=== PATIENT | male | born 1960 | race Caucasian/White ===

== ENCOUNTER → 2025-06-27 | Outpatient (CLI) | payer BC, SELFPAY ==
[2025-06-28 14:08] LABS: PSA, Free 0.84 ng/mL; PSA, Free % 20.0 % (.); PSA, Total Ultrasensitive 4.200 ng/mL (0.000-4.000)
== END | disposition home or self-care (01) ==
LOC: LAB 09:18
PROVIDERS: PCP Student in an Organized Health Care Education/Training Program; Referring Provider Urology; Visit Provider Urology
DX: R97.20 Elevated prostate specific antigen [PSA] (principal)
CPT/HCPCS: 36415; 84153; 84154

== ENCOUNTER → 2025-07-10 | Outpatient (CLI) | payer BC, SELFPAY ==
--- NOTE | 2025-07-10 07:52 | MRI_ITS ---
EXAM: PELVIS W/WO CONTRAST 07/10/2025 CLINICAL HISTORY: ELEVATED PROSTATE SPECIFIC ANTIGEN. PSA 4.20 TECHNIQUE: Procedure Code: [id number] Modality: MR Procedure: PELVIS W/WO CONTRAST Multi planer multisequence multi parametric MRI of the prostate is performed prior to and after dynamic intravenous contrast administration. CONTRAST: Clariscan VOLUME: 20 mL COMPARISON: None FINDINGS: Prostate size: 2.9 x 3.8 x 4.6 cm, estimated volume 26.54 mL. Per the above provided PSA, PSA density is 0.158 ng/mL. Transition zone: PI-RADS 2 findings. Benign prostatic hyperplasia *Lesion 1: Well-circumscribed T2 hypointense nodule with restricted diffusion in the anterior transitional zone/anterior fibromuscular stroma. This nodule appears well encapsulated. *T2 score: 2; mostly encapsulated nodule or a homogeneous circumscribed nodule without encapsulation, or a homogeneous mildly hypointense area between nodules. *DWI score: 3; focal (discrete and different from background), mild/moderate hypointensity on ADC and/or mild/moderate hyperintensity on high b-value DWI; may be markedly hypointense on ADC or markedly hyperintense on high b-value DWI, but not both. *DCE: Negative. *Overall PI-RADS: PI-RADS 3. *Extracapsular extension:No gross extracapsular extension. Peripheral Zone: Unremarkable *T2 score: Choose 2. *DWI score: Choose 1. *DCE: Negative. *Overall PI-RADS: PI-RADS 2. *Extracapsular extension:No gross extracapsular extension. Neurovascular bundles: Unremarkable. Seminal vesicles: Unremarkable. Bladder: Underdistended and suboptimally evaluated, grossly unremarkable. Lymph nodes: Unremarkable. Bones: No destructive or frankly suspicious bony lesions identified on nondedicated evaluation. Other: None. MRI/Pelvis W/WO Contrast IMPRESSION: Benign prostatic hyperplasia. Well-circumscribed encapsulated T2 hypointense nodule in the anterior transitio nal zone midline/anterior fibromuscular stroma. PI-RADS: PI-RADS 3. Reading Location: [facility]
== END | disposition home or self-care (01) ==
PROVIDERS: PCP Student in an Organized Health Care Education/Training Program; Referring Provider Urology; Visit Provider Urology
DX: R97.20 Elevated prostate specific antigen [PSA] (principal); N40.0 Benign prostatic hyperplasia without lower urinary tract symptoms
CPT/HCPCS: 72197; A9575; A4216